=== PATIENT | female | born 1960 | race Caucasian/White ===

== ENCOUNTER → 2021-08-26 08:48 | Outpatient (BNVA) | payer MEDICARE, SELFPAY | PROVIDERS: PCP Family Medicine; Referring Provider Family Medicine; Visit Provider Orthopaedic Surgery | DX: M54.50 Low back pain, unspecified (principal) | CPT/HCPCS: 72110; 99203; 99204 ==

== ENCOUNTER 2021-10-08 08:09 | Outpatient (CLI) | payer MEDICARE, SELFPAY ==
--- NOTE | 2021-10-08 08:45 | MR_ITS ---
WS: [id number] MRI LUMBAR SPINE WITHOUT AND WITH CONTRAST TECHNIQUE: Sagittal T1, T2 and STIR imaging. Axial T1 and T2 imaging. Post gadolinium imaging was obt ained. CLINICAL INFORMATION: pain COMPARISON: None. FINDINGS: Mild lumbar curve. No acute compression. Pedicle screw fixation L4-L5 with interbody fusion graft. No high-grade central canal stenosis. L1-L2: Mild annular bulging with a tiny LEFT subarticular protrusion.. Slight narrowing of the LEFT s ubarticular recess with encroachment traversing LEFT L2 nerve root. Mild facet arthropathy. Foramen a re patent. L2-L3: Slight narrowing of the LEFT subarticular recess and traversing LEFT L3 nerve root. Mild facet arthropathy. Spinal canal and foramen are patent. L3-L4: Mild annular bulging with mild central canal stenosis. Prominent epidural fat contributes to s tenosis. Moderate facet arthropathy with ligamentum flavum hypertrophy. Narrowing of the subarticular recess bilaterally. Mild LEFT and no significant RIGHT foraminal narrowing. L4-L5: Prior postoperative changes pedicle screw fixation with interbody fusion. Spinal canal and for amen are patent. L5-S1: Prior postoperative changes pedicle screw fixation L5. Mild disc bulging with a tiny shallow c entral protrusion. Slight contact of the RIGHT S1 nerve root. Spinal canal and foramen are patent. Mo derate facet arthropathy. No abnormal gadolinium enhancement. Tiny central protrusions mid cervical spine at C4-C5 and C5-C6 seen on the bark scaler imaging. MR/MR lumbar spine wo/w con [id number] IMPRESSION: 1. Mild lumbar curve. No acute compression. No high-grade central canal stenos is. 2. Pedicle screw fixation L4-L5 with interbody fusion graft which appears lulu d. 3. Mild annular bulging L1-L2 with slight effacement of ventral thecal sac. Ti ny LEFT subarticular protrusion with slight encroachment on the traversing LEFT L2 nerve root. 4. Slight narrowing of the LEFT L2-L3 subarticular recess. 5. Mild central canal stenosis L3-L4 due to slight retrolisthesis in combinati on with disc bulging and facet arthropathy with ligamentum flavum hypertrophy. Prominent dorsal epidural fat at this level contributes to stenosis. Narrowing of the LEFT greater than RIGHT subarticular recess with mild LEFT foraminal av rowing. 6. Spinal canal and foramen are patent at the L4-L5 and L5-S1 fusion levels. 7. Tiny RIGHT pericentral protrusion L5-S1 slightly contacts RIGHT S1 nerve ro ot. 8. Moderate to advanced facet arthropathy L5-S1.
== END 2021-10-08 08:10 | disposition home or self-care (01) ==
PROVIDERS: PCP Family Medicine; Visit Provider Orthopaedic Surgery
DX: M51.26 Other intervertebral disc displacement, lumbar region (principal); M48.061 Spinal stenosis, lumbar region without neurogenic claudication; M51.27 Other intervertebral disc displacement, lumbosacral region; Z98.1 Arthrodesis status
CPT/HCPCS: 72158

== ENCOUNTER → 2021-10-23 08:08 | Outpatient (BNVA) | payer MEDICARE, SELFPAY | PROVIDERS: PCP Family Medicine; Visit Provider Orthopaedic Surgery | DX: M48.061 Spinal stenosis, lumbar region without neurogenic claudication (principal); M51.36 Other intervertebral disc degeneration, lumbar region; Z98.1 Arthrodesis status | CPT/HCPCS: 99214 ==

== ENCOUNTER 2022-01-08 09:22 | Outpatient (CLI) | payer MEDICARE, SELFPAY ==
--- NOTE | 2022-01-08 09:29 | MM_ITS ---
WS: [id number] BILATERAL SCREENING DIGITAL TOMOSYNTHESIS MAMMOGRAM WITH CAD HISTORY: SCREENING COMPARISON: None available. Bilateral CC and MLO views with tomosynthesis and synthetic mammography submitted. Computer aided det ection analyzed. Breast composition: There are scattered areas of fibroglandular density. No suspicious masses, microc alcifications or architectural distortion. MM/[place] [id number] IMPRESSION: BI-RADS: 1-Negative FOLLOW UP: 1 Year Follow-up
== END 2022-01-08 09:23 | disposition home or self-care (01) ==
LOC: RAD 09:23
PROVIDERS: PCP Family Medicine; Visit Provider Family Medicine
DX: Z12.31 Encounter for screening mammogram for malignant neoplasm of breast (principal)
CPT/HCPCS: 77063; 77067

== ENCOUNTER → 2023-01-13 10:50 | Outpatient (BNVA) | payer MEDICARE, SELFPAY | PROVIDERS: PCP Family Medicine; Referring Provider Family Medicine; Visit Provider Specialist | DX: G56.01 Carpal tunnel syndrome, right upper limb (principal) | CPT/HCPCS: 73110 ==

== ENCOUNTER 2023-01-13 15:36 | Outpatient (CLI) | payer MEDICARE, SELFPAY | END 2023-01-13 15:37 | disposition home or self-care (01) | LOC: SPT 15:36 | PROVIDERS: PCP Family Medicine; Visit Provider Specialist | DX: Z46.89 Encounter for fitting and adjustment of other specified devices (principal); G56.00 Carpal tunnel syndrome, unspecified upper limb | CPT/HCPCS: 99204; L3908 ==

== ENCOUNTER 2023-01-26 10:55 | Outpatient (CLI) | payer MEDICARE, SELFPAY ==
[2023-01-26 11:26] LABS: Basophils % 0.6 %; Eosinophils # 0.1 10^3/uL (0.0-0.8); Eosinophils % 1.7 %; Hematocrit 41.4 % (36-47); Lymphocytes # 2.2 10^3/uL (0.8-4.8); Lymphocytes % 42.6 %; Mean Corpuscular HGB Conc 34.1 g/dL (30-55); Mean Corpuscular Hemoglobin 33.6 pg (27-33); Mean Corpuscular Volume 98.6 fl (85-98); Monocytes # 0.3 10^3/uL (0.2-0.9); Monocytes % 4.9 %; Neutrophils # 2.62 10^3/uL (1.8-7.7); Neutrophils % 49.8 %; Nucleated Red Blood Cells % 0 %; Platelet Count 212 10^3/cmm (157-399); Red Cell Distribution Width 12.7 % (12.1-15.1); White Blood Count 5.26 10^3/uL (3.29-11.43)
[2023-01-26 11:48] LABS: Add Urine Microscopic? YES; Bacteria Urine 3+ /hpf; Bilirubin Urine Neg (Negative); Blood Urine Neg (Negative); Glucose Urine UA Norm (Normal); Ketones Urine Negative (Negative); Leukocyte Esterase Urine 2+ (Negative); Nitrate Urine Negative (Negative); Protein Urine Neg (Negative); RBC Urine 0-4 /hpf (0-2); Specific Gravity, Urine 1.015 (1.005-1.030); Urine Appearance SL Hazy (CLEAR); Urine Color Yellow (Yellow); Urobilinogen Urine Norm (Negative); pH Urine 6 (5-7)
[2023-01-26 11:49] LABS: Add Urine Culture? Yes
[2023-01-26 11:53] LABS: Alanine Aminotransferase 21 U/L (0-33); Albumin Level 4.4 g/dL (3.5-5.2); Alkaline Phosphatase 66 U/L (35-105); Anion Gap 13.8 (5-19); Aspartate Amino Transferase 20 U/L (0-32); Blood Urea Nitrogen 16 mg/dL (8-23); Calcium 9.3 mg/dL (8.5-10.5); Carbon Dioxide 23 mmol/L (22-29); Chloride 106 mmol/L (98-107); Globulin 2.6 g/dL (1.3-4.6); Glomerular Filtration Rate 85.1 mL/min (90-130); Glucose 114 mg/dL (65-115); Osmolality Calculated 290 mOsm/kg (285-295); Potassium 3.8 mmol/L (3.5-5.1); Sodium 139 mmol/L (136-145); Total Bilirubin 1.1 mg/dL (0.15-1.2)
== END 2023-01-26 10:56 | disposition home or self-care (01) ==
PROVIDERS: PCP Family Medicine; Visit Provider Specialist
DX: G56.00 Carpal tunnel syndrome, unspecified upper limb (principal); Z79.899 Other long term (current) drug therapy
CPT/HCPCS: 36415; 80053; 81001; 85025; 87086; 87186

== ENCOUNTER → 2023-01-29 11:13 | Outpatient (BNVA) | payer MEDICARE, SELFPAY | PROVIDERS: PCP Family Medicine; Visit Provider Family Medicine | DX: Z01.818 Encounter for other preprocedural examination (principal); Z79.899 Other long term (current) drug therapy | CPT/HCPCS: 81000; 81003 ==

== ENCOUNTER 2023-02-02 10:12 | Outpatient (CLI) | payer MEDICARE, SELFPAY ==
--- NOTE | 2023-02-02 10:19 | MM_ITS ---
WS: [id number] BILATERAL 3D TOMOSYNTHESIS DIGITAL SCREENING MAMMOGRAPHY WITH CAD CLINICAL INFORMATION: SCREENING HISTORY: Screening mammogram. No current complaints. COMPARISON: 2021 TECHNIQUE: Bilateral CC and MLO views. FINDINGS: Scattered fibroglandular densities bilaterally. No suspicious focal mass, asymmetry, calcifications, or architectural distortion. No evidence of malignancy. Punctate and lucent centered calcifications. IMPRESSION: MM/[place] [id number] BI-RADS: 2-Benign FOLLOW UP: 1 Year Follow-up Recommend return to annual screening mammography.
== END 2023-02-02 10:13 | disposition home or self-care (01) ==
LOC: MOBLMAM 10:18
PROVIDERS: PCP Family Medicine; Visit Provider Family Medicine
DX: Z12.31 Encounter for screening mammogram for malignant neoplasm of breast (principal)
CPT/HCPCS: 77063; 77067

== ENCOUNTER 2023-02-05 08:15 | Day surgery (SDC) | payer MEDICARE, SELFPAY ==
[2023-02-04 09:11] VITALS: BP 153/84; PULSE 62; RESP 16; O2SAT 99
[2023-02-04 09:17] VITALS: BMI 34.9
[2023-02-05] VITALS (10 sets, daily range): BP systolic 119–179; BP diastolic 56–105; PULSE 56–75; RESP 10–22; TEMP 36–36.6; O2SAT 92–98
[2023-02-05] MEDS: acetaminophen 1,000 MG/100 ML PIGGYBACK 400 MG IV (09:26)
[2023-02-05] MEDS: sodium chloride 0.9% 1,000 ML 30 ML IV (09:28)
[2023-02-05] MEDS: CELEcoxib 200 mg Capsule 400 MG PO (09:28)
--- NOTE | 2023-02-05 09:56 | ANES.PREANE2 ---
Pre-Anesthetic Assessment Height/Weight: Height 1.55 m Weight 83.915 kg Temp Pulse Resp BP Pulse Ox O2 Del Method 97.5 F L 68 16 131/75 98 Room Air 02/05/23 09:42 02/05/23 09:42 02/05/23 09:42 02/05/23 09:42 02/05/23 09:42 02/05/23 09:30 Operation Date: 02/05/23 10:40 Proposed Procedures p RIGHT CARPAL TUNNEL RELEASE [id number],G56.00(Right) - Kimberlyn Rodriguez MD Was Beta [facility] taken within 24 hours: Yes Was Clonidine taken within 24 hours: N/A Last intake: Intake Last Liquid Date 02/04/23 Last Liquid Time 18:00 Last Solid Date 02/04/23 Last Solid Time 20:00 Social No tobacco Exam alert, oriented x 3, clear to auscultation bilaterally and regular rate & rhythm Airway Submandibular: within normal limits Cervical ROM: within normal limits Mallampati: Class II History/ROS No significant history except as noted and No significant complaints CV/HEM Hypertension Metabolic Hyperlipidemia and Morbid Obesity Neuropsych Depression Anesthetic Plan ASA status: 3 Anesthesia: Choice Risk of > 500 ml blood loss (7ml/kg in children): No Medications/Allergies Home Medications Medication Instructions Recorded Confirmed Last Taken Type aspirin 81 mg tablet,delayed 81 mg PO DAILY 08/26/21 02/04/23 01/21/23 History release (Adult Aspirin Regimen) benazepril 20 mg tablet 20 mg PO DAILY 08/26/21 02/05/23 02/04/23 History carvedilol 3.125 mg tablet (Coreg) 3.125 mg PO BID 08/26/21 02/05/23 02/05/23 07:30 History cetirizine 10 mg capsule (All Day 10 mg PO DAILY PRN Allergy Symptoms 08/26/21 02/05/23 02/04/23 History Allergy (cetirizine)) famotidine 20 mg tablet 20 mg PO DAILY 08/26/21 02/05/23 02/04/23 History fluoxetine 20 mg capsule 20 mg PO DAILY 08/26/21 02/05/23 02/04/23 History fluticasone propionate 50 1 spray intranasal DAILY 08/26/21 02/05/23 02/04/23 History mcg/actuation nasal spray,suspension (Flonase Allergy Relief) pravastatin 10 mg tablet 10 mg PO DAILY 08/26/21 02/04/23 02/04/23 History spironolactone 25 mg tablet 25 mg PO DAILY 08/26/21 02/04/23 02/04/23 History cock up wrist splint #1 ea 01/13/23 01/13/23 Unknown Rx ciprofloxacin HCl 500 mg tablet 500 mg PO BID #10 tabs 01/31/23 02/05/23 02/04/23 Rx Allergies Allergy/AdvReac Type Severity Reaction Status Date / Time Sulfa (Sulfonamide AdvReac ADR-Nausea Verified 02/04/23 09:14 Antibiotics) Current Medications Generic Name Dose Route Start Last Admin Trade Name Freq PRN Reason Stop Dose Admin Sodium Chloride 1,000 mls @ 30 mls/hr 02/05/23 09:00 02/05/23 09:28 Sodium Chloride 0.9% IV 02/06/23 08:59 30 mls/hr .Q24H BEL Administration Data Anesthesia Cardiac Studies: No Data to Display
--- NOTE | 2023-02-05 10:25 | P.HPUD_ITS ---
Surgery/Procedure H&P Update DATE OF PROCEDURE: February 05, 2023 DATE H&P PERFORMED: 01/13/23 H&P UPDATE INFORMATION: I have reviewed H&P completed within last 30 days, I have examined patient prior to procedure, No changes to prior documentation and H&P is in [facility] EMR on date indicated PLANNED PROCEDURE: Operation Date: 02/05/23 10:40 Proposed Procedures p RIGHT CARPAL TUNNEL RELEASE 43025,G56.00(Right) - Kimberlyn Rodriguez MD Related Problem List Diagnoses (1) Carpal tunnel syndrome on right:
[2023-02-05] MEDS: ceFAZolin 2,000 MG in sodium chloride 0.9% (plus) 50 ML 100 MG IV (10:36)
[2023-02-05] MEDS: BUPivacaine 0.5% INJ 30 mL INJECTION (11:16)
--- NOTE | 2023-02-05 11:31 | PM.OP ---
Operative Report Date of procedure: February 05, 2023 Pre-op diagnosis: Right carpal tunnel syndrome Post-op diagnosis: Right carpal tunnel syndrome Post-op findings: Significant compression across the carpal canal with discoloration and compression across the median nerve Procedure done: Right carpal tunnel release Surgeon: Kimberlyn Rodriguez MD Anesthesia: General (Per LMA, ASA 3) Estimated blood loss (mL): 2 Tourniquet time (min): 18 (At 250 mmHg) IV fluids (mL): 300 Urine output (mL): 0 (No Cespedes) Complications: None Findings: Significant compression across the carpal canal with discoloration and compression across the median nerve Condition: stable Disposition: PACU (Then discharged for home for postoperative rehabilitation and pain management) Brief History: Alireza Burkett presents today for right carpal tunnel release. She had an EMG at [facility] which confirmed carpal tunnel syndrome. The pain has been present for greater than 6 months. She has difficulties with her activities of daily living. When she was seen in the office, questions were answered and consents were signed. Procedure: The patient was brought to the operating theater.? Patient was administered a general anesthesia per LMA, ASA 3.? The tourniquet was elevated to 250 mmHg for a total tourniquet time of 18 minutes. The patient was also given Ancef 2 g preoperatively. The arm was then prepped and draped with DuraPrep in usual fashion with the arm draped free. A surgical pause was performed. At the time, the surgical pause, we confirmed the site and side of surgery. We also confirmed the patient's identity, appropriate and timely administration of preoperative antibiotics and preoperative surgical markings. An incision was then made along the thenar crease. The incision crossed the wrist joint in a curvilinear fashion. Dissection continued through skin and soft tissues using a scalpel. The palmaris longus was identified along with the transverse carpal ligament. Each of these was released carefully to avoid injury to the median nerve. We were able to dissect gently into the carpal canal which was noted to be quite tight with significant compression across the median nerve. The nerve was visualized and was an hourglass shape. The canal was subsequently palpated to assure there was no bony encroachment upon the canal. There was a quite thickened fibrous tissue within the canal, and this was opened longitudinally as well. The canal was then palpated distally and proximally to assure that my small finger was passed easily without impingement. Finding this to be so, attention was directed to closure. The wound was irrigated with ropivacaine plain. It was then closed with 3-0 nylon in an interrupted mattress fashion. Sterile dressing was then placed consisting of Dermabond, OpSite, sterile soft roll, and an Jamil wrap. The tourniquet was released after 18 minutes. There were no complications. There were no specimens. The procedure was well tolerated. Plan is the patient will be discharged home. Related Problem List Diagnoses (1) Carpal tunnel syndrome on right:
--- NOTE | 2023-02-05 13:49 | ANE.PACU2 ---
Inpatient post-anesthesia follow up: Airway intact: Yes Vital signs: Temperature 96.8 F Pulse Rate 69 Respiratory Rate 16 Blood Pressure 170/86 Pulse Oximetry 96 Oxygen Delivery Me thod Room Air Oxygen Flow Rate 6 Fraction of Inspir ed Oxygen Hydration adequate: Yes Nausea and vomiting: No Pain level: 1 Mental status: Baseline
== END 2023-02-05 12:35 | disposition home or self-care (01) ==
PROVIDERS: PCP Family Medicine; Visit Provider Specialist
PROC: (CPT 64721; principal; 2023-02-05 10:30)
DX: G56.01 Carpal tunnel syndrome, right upper limb (principal); I10 Essential (primary) hypertension; E78.5 Hyperlipidemia, unspecified; E66.01 Morbid (severe) obesity due to excess calories; Z68.35 Body mass index [BMI] 35.0-35.9, adult; Z79.82 Long term (current) use of aspirin
CPT/HCPCS: 64721; J0131; J0690; J1100; J2405; J2704; J3010; J3490; J7030

== ENCOUNTER → 2023-02-18 08:55 | Outpatient (BNVA) | payer MEDICARE, SELFPAY | PROVIDERS: PCP Family Medicine; Visit Provider Physician Assistant | DX: Z98.890 Other specified postprocedural states (principal) | CPT/HCPCS: 99024 ==

== ENCOUNTER → 2023-03-31 07:59 | Outpatient (BNVA) | payer MEDICARE, SELFPAY | PROVIDERS: PCP Family Medicine; Visit Provider Specialist | DX: Z98.890 Other specified postprocedural states (principal) | CPT/HCPCS: 99024 ==

== ENCOUNTER → 2023-04-12 10:37 | Outpatient (BNVA) | payer MEDICARE, SELFPAY | PROVIDERS: PCP Family Medicine; Referring Provider Family Medicine; Visit Provider Surgery | DX: Z12.11 Encounter for screening for malignant neoplasm of colon (principal) | CPT/HCPCS: 99024; 99203 ==

== ENCOUNTER 2023-06-17 08:19 | Day surgery (SDC) | payer MEDICARE, SELFPAY ==
[2023-06-17 08:33] VITALS: BP 136/81; PULSE 74; RESP 18; TEMP 36.2; O2SAT 98; BMI 34.9
[2023-06-17] MEDS: sodium chloride 0.9% 1,000 ML 30 ML IV (08:39)
--- NOTE | 2023-06-17 08:43 | ANES.PREANE2 ---
Pre-Anesthetic Assessment Height/Weight: Height 1.55 m Weight 83.915 kg Temp Pulse Resp BP Pulse Ox O2 Del Method 97.2 F L 74 18 136/81 98 Room Air 06/17/23 08:33 06/17/23 08:33 06/17/23 08:33 06/17/23 08:33 06/17/23 08:33 06/17/23 08:33 Preop Diagnosis: screening Operation Date: 06/17/23 09:15 [place] [address] colon G0121 screen colon a risk Z12.11(Not Applicable) - Yan Hampton MD Was Beta [facility] taken within 24 hours: Yes Was Clonidine taken within 24 hours: N/A Last intake: Intake Last Liquid Date 06/16/23 Last Liquid Time 20:00 Last Solid Date 06/15/23 Last Solid Time 15:00 Last Intake: 00:01 Social No alcohol Exam alert, oriented x 3, clear to auscultation bilaterally and regular rate & rhythm Airway Submandibular: within normal limits Cervical ROM: within normal limits Mallampati: Class II Comments: Comments: intact History/ROS No significant history except as noted and No significant complaints Pulmonary None reported CV/HEM Hypertension high chol None reported Hepatic None reported GI None reported Metabolic Thyroid Disease polyps Musc/skel None reported Neuropsych Anxiety Anesthetic Plan ASA status: 2 Anesthesia: MAC Medications/Allergies Home Medications Medication Instructions Recorded Confirmed Last Taken Type aspirin 81 mg tablet,delayed 81 mg PO .QOTHERDAY 08/26/21 06/15/23 06/14/23 History release (Adult Aspirin Regimen) benazepril 20 mg tablet 20 mg PO DAILY 08/26/21 06/15/23 06/16/23 History carvedilol 3.125 mg tablet (Coreg) 3.125 mg PO BID 08/26/21 06/15/23 06/17/23 History cetirizine 10 mg capsule (All Day 10 mg PO DAILY PRN Allergy Symptoms 08/26/21 06/15/23 06/16/23 History Allergy (cetirizine)) famotidine 20 mg tablet 20 mg PO DAILY 08/26/21 06/15/23 06/16/23 History fluoxetine 20 mg capsule 20 mg PO DAILY 08/26/21 06/15/23 06/16/23 History fluticasone propionate 50 1 spray intranasal DAILY 08/26/21 06/15/23 06/16/23 History mcg/actuation nasal spray,suspension (Flonase Allergy Relief) pravastatin 10 mg tablet 10 mg PO DAILY 08/26/21 06/15/23 06/16/23 History spironolactone 25 mg tablet 25 mg PO DAILY 08/26/21 06/15/23 06/16/23 History Hair,Skin and Nails 2 tab PO DAILY 06/15/23 06/15/23 06/16/23 History PreserVision AREDS 2 tab PO DAILY 06/15/23 06/15/23 06/16/23 History acetaminophen 650 mg 650 mg PO Q12H 06/15/23 06/15/23 06/15/23 History tablet,extended release Allergies Allergy/AdvReac Type Severity Reaction Status Date / Time Sulfa (Sulfonamide AdvReac ADR-Nausea Verified 06/15/23 08:42 Antibiotics) Current Medications Generic Name Dose Route Start Last Admin Trade Name Freq PRN Reason Stop Dose Admin Sodium Chloride 1,000 mls @ 30 mls/hr 06/17/23 08:30 06/17/23 08:39 Sodium Chloride 0.9% IV 30 mls/hr .Q24H BEL Administration PFSH Anesthesia Family History (Updated 04/12/23 @ 10:[address]) Father Cancer colon cancer prostate cancer and liver Renal failure Mother Stroke 62 Hypertension Social History (Updated 04/12/23 @ 10:[address]) Smoking and tobacco/nicotine status: never used tobacco/nicotine Alcohol intake: never Data Anesthesia Cardiac Studies: No Data to Display
--- NOTE | 2023-06-17 08:50 | W.PM.OPSFHP ---
Same Day Surgery H&P Indication for Procedure/HPI DATE OF PROCEDURE: June 17, 2023 CHIEF COMPLAINT/INDICATIONFOR SURGICAL PROCEDURE: need for screening colonoscopy PREOP DIAGNOSIS: screening PLANNED PROCEDURE: Operation Date: 06/17/23 09:15 Proposed Procedures p 20385 colon G0121 screen colon a risk Z12.11(Not Applicable) - Yan Hampton MD Medications/Allergies* Home Medications Medication Instructions Recorded Confirmed Type aspirin 81 mg tablet,delayed 81 mg PO .QOTHERDAY 08/26/21 06/15/23 History release (Adult Aspirin Regimen) benazepril 20 mg tablet 20 mg PO DAILY 08/26/21 06/15/23 History carvedilol 3.125 mg tablet (Coreg) 3.125 mg PO BID 08/26/21 06/15/23 History cetirizine 10 mg capsule (All Day 10 mg PO DAILY PRN Allergy Symptoms 08/26/21 06/15/23 History Allergy (cetirizine)) famotidine 20 mg tablet 20 mg PO DAILY 08/26/21 06/15/23 History fluoxetine 20 mg capsule 20 mg PO DAILY 08/26/21 06/15/23 History fluticasone propionate 50 1 spray intranasal DAILY 08/26/21 06/15/23 History mcg/actuation nasal spray,suspension (Flonase Allergy Relief) pravastatin 10 mg tablet 10 mg PO DAILY 08/26/21 06/15/23 History spironolactone 25 mg tablet 25 mg PO DAILY 08/26/21 06/15/23 History Hair,Skin and Nails 2 tab PO DAILY 06/15/23 06/15/23 History PreserVision AREDS 2 tab PO DAILY 06/15/23 06/15/23 History acetaminophen 650 mg 650 mg PO Q12H 06/15/23 06/15/23 History tablet,extended release Allergies/Adverse Reactions Allergy/AdvReac Type Severity Reaction Status Date / Time Sulfa (Sulfonamide AdvReac ADR-Nausea Verified 06/15/23 08:42 Antibiotics) Current Medications: Generic Name Dose Route Start Last Admin Trade Name Freq PRN Reason Stop Dose Admin Sodium Chloride 1,000 mls @ 30 mls/hr 06/17/23 08:30 06/17/23 08:39 Sodium Chloride 0.9% IV 30 mls/hr .Q24H BEL Administration Pertinent History/Comorbid Conditions* Family History (Updated 04/12/23 @ 10:44 by SHAHZAD Jara) Renal failure Father Cancer Father colon cancer prostate cancer and liver Hypertension Mother Stroke Mother 62 Social History Smoking and tobacco/nicotine status: never used tobacco/nicotine Alcohol intake: never Pertinent Exam Findings alert, oriented x 3 and clear to auscultation bilaterally Recommendations Surgery/Procedure today Coding Level of Care Code Acute Code for Chg Fwd
[2023-06-17 09:20] VITALS: BP 123/55; PULSE 66; RESP 18; TEMP 36.1; O2SAT 95
[2023-06-17 09:30] VITALS: BP 111/63; PULSE 63; RESP 18; O2SAT 95
[2023-06-17 09:39] VITALS: BP 125/74; PULSE 62; RESP 16; O2SAT 96
--- NOTE | 2023-06-17 10:00 | ANE.PACU2 ---
Inpatient post-anesthesia follow up: Airway intact: Yes Vital signs: Temperature 97.0 F Pulse Rate 62 Respiratory Rate 16 Blood Pressure 125/74 Pulse Oximetry 96 Oxygen Delivery Me thod Room Air Oxygen Flow Rate Fraction of Inspir ed Oxygen Hydration adequate: Yes Nausea and vomiting: No Pain level: 1 Mental status: Baseline
== END 2023-06-17 10:00 | disposition home or self-care (01) ==
PROVIDERS: PCP Family Medicine; Visit Provider Surgery
PROC: 0DJD8ZZ Inspection of Lower Intestinal Tract, Via Natural or Artificial Opening Endoscopic (ICD-10-PCS; CPT 45378; principal; 2023-06-17 09:15)
DX: Z12.11 Encounter for screening for malignant neoplasm of colon (principal); D12.8 Benign neoplasm of rectum; Z79.82 Long term (current) use of aspirin; I10 Essential (primary) hypertension
CPT/HCPCS: 45380; 88305; J2704; J7030

== ENCOUNTER → 2023-06-30 10:05 | Outpatient (BNVA) | payer MEDICARE, SELFPAY | PROVIDERS: PCP Family Medicine; Visit Provider Surgery | DX: Z09 Encounter for follow-up examination after completed treatment for conditions other than malignant neoplasm (principal) | CPT/HCPCS: 99212 ==

== ENCOUNTER 2024-04-05 09:52 | Outpatient (CLI) | payer MEDICARE, SELFPAY ==
--- NOTE | 2024-04-05 09:56 | MM_ITS ---
WS: [id number] BILATERAL SCREENING DIGITAL TOMOSYNTHESIS MAMMOGRAM WITH CAD HISTORY: SCREENING COMPARISON: 02/02/2023, 01/08/2022 Bilateral CC and MLO views with tomosynthesis and synthetic mammography submitted. Computer aided det ection analyzed. Breast composition: The breasts are almost entirely fatty. No suspicious masses, microcalcifications or architectural distortion. Small benign scattered calcifications. MM/MM scr BI tomosynthesis [id number] IMPRESSION: BI-RADS: 2 - Benign. FOLLOW UP: 1 Year Follow-up
== END 2024-04-05 09:53 | disposition home or self-care (01) ==
LOC: RAD 09:53
PROVIDERS: PCP Family Medicine; Visit Provider Family Medicine
DX: Z12.31 Encounter for screening mammogram for malignant neoplasm of breast (principal); R92.313 Mammographic fatty tissue density, bilateral breasts; R92.1 Mammographic calcification found on diagnostic imaging of breast
CPT/HCPCS: 77063; 77067

== ENCOUNTER 2024-05-03 09:59 | Outpatient (CLI) | payer MEDICARE, SELFPAY ==
--- NOTE | 2024-05-03 10:11 | XRR_ITS ---
PROCEDURE INFORMATION: Exam: XR Left Ankle Exam date and time: 05/03/2024 10:23 AM Age: 63 years old Clinical indication: Pain; Ankle; Left; Patient HX: Stiffness and warm feeling in joints x 2 wks; Additional info: Arthritis TECHNIQUE: Imaging protocol: Radiologic exam of the left ankle. Views: 1 or 2 views. COMPARISON: No relevant prior studies available. FINDINGS: Bones/joints: Normal. Soft tissues: Normal. XR/XR ankle LT 2V [id number] IMPRESSION: No acute findings.
--- NOTE | 2024-05-03 10:11 | XRR_ITS ---
PROCEDURE INFORMATION: Exam: XR Right Hand Exam date and time: 05/03/2024 10:23 AM Age: 63 years old Clinical indication: Pain; Hand; Bilateral; Prior surgery; Surgery date: 6+ months; Surgery type: Right carpal tunnel; Patient HX: Stiffness and warm feeling in joints x 2 wks; Additional info: Arthritis TECHNIQUE: Imaging protocol: Radiologic exam of the right hand. Views: 3 or more views. COMPARISON: CR XR wrist RT min 3V* [id number] 05/03/2024 10:23 AM FINDINGS: Bones/joints: Normal. Soft tissues: Normal. XR/XR hand RT min 3V* [id number] IMPRESSION: No acute findings.
--- NOTE | 2024-05-03 10:11 | XRR_ITS ---
PROCEDURE INFORMATION: Exam: XR Left Hand Exam date and time: 05/03/2024 10:23 AM Age: 63 years old Clinical indication: Pain; Hand; Bilateral; Patient HX: Stiffness and warm feeling in joints x 2 wks; Additional info: Arthritis TECHNIQUE: Imaging protocol: Radiologic exam of the left hand. Views: 3 or more views. COMPARISON: CR XR wrist LT min 3V* [id number] 05/03/2024 10:23 AM FINDINGS: Bones/joints: Normal. Soft tissues: Normal. XR/XR hand LT min 3V* [id number] IMPRESSION: No acute findings.
--- NOTE | 2024-05-03 10:11 | XRR_ITS ---
PROCEDURE INFORMATION: Exam: XR Right Ankle Exam date and time: 05/03/2024 10:23 AM Age: 63 years old Clinical indication: Pain; Ankle; Right; Patient HX: Stiffness and warm feeling in joints x 2 wks; Additional info: Arthritis TECHNIQUE: Imaging protocol: Radiologic exam of the right ankle. Views: 1 or 2 views. COMPARISON: No relevant prior studies available. FINDINGS: Bones/joints: Incidentally noted is a small right inferior calcaneal spur. Otherwise, unremarkable. Soft tissues: Otherwise, unremarkable soft tissues. XR/XR ankle RT 2V [id number] IMPRESSION: No acute findings.
--- NOTE | 2024-05-03 10:17 | XRR_ITS ---
PROCEDURE INFORMATION: Exam: XR Left Wrist Exam date and time: 05/03/2024 10:23 AM Age: 63 years old Clinical indication: Pain; Wrist; Left; Patient HX: Stiffness and warm feeling in joints x 2 wks; Additional info: Arthritis(icd-m19.90) TECHNIQUE: Imaging protocol: Radiologic exam of the left wrist. Views: 3 or more views. COMPARISON: CR XR hand LT min 3V* [id number] 05/03/2024 10:23 AM FINDINGS: Bones/joints: Normal. Soft tissues: Normal. XR/XR wrist LT min 3V* [id number] IMPRESSION: No acute findings.
--- NOTE | 2024-05-03 10:18 | XRR_ITS ---
PROCEDURE INFORMATION: Exam: XR Right Wrist Exam date and time: 05/03/2024 10:23 AM Age: 63 years old Clinical indication: Pain; Wrist; Prior surgery; Surgery date: 6+ months; Surgery type: Right carpal tunnel; Patient HX: Stiffness and warm feeling in joints x 2 wks; Additional info: Arthritis(icd-m19.90) TECHNIQUE: Imaging protocol: Radiologic exam of the right wrist. Views: 3 or more views. COMPARISON: CR XR wrist RT min 3V* [id number] 01/13/2023 10:51 AM FINDINGS: Bones/joints: Normal. Soft tissues: Normal. XR/XR wrist RT min 3V* [id number] IMPRESSION: No acute findings.
== END 2024-05-03 10:00 | disposition home or self-care (01) ==
PROVIDERS: PCP Family Medicine; Visit Provider Family Medicine
DX: M77.31 Calcaneal spur, right foot (principal); M19.90 Unspecified osteoarthritis, unspecified site
CPT/HCPCS: 73110; 73130; 73600

== ENCOUNTER → 2024-08-03 13:44 | Outpatient (BNVA) | payer MEDICARE, SELFPAY | PROVIDERS: PCP Family Medicine; Visit Provider Dermatology | DX: C44.92 Squamous cell carcinoma of skin, unspecified (principal); L81.4 Other melanin hyperpigmentation; L82.1 Other seborrheic keratosis; D18.01 Hemangioma of skin and subcutaneous tissue; D23.39 Other benign neoplasm of skin of other parts of face; B07.0 Plantar wart; D48.5 Neoplasm of uncertain behavior of skin; L57.0 Actinic keratosis | CPT/HCPCS: 17000; 69100; 99203 ==

== ENCOUNTER → 2025-02-05 11:29 | Outpatient (BNVA) | payer MEDICARE, SELFPAY | PROVIDERS: PCP Family Medicine; Visit Provider Dermatology | DX: B07.0 Plantar wart (principal); L82.1 Other seborrheic keratosis; L72.0 Epidermal cyst; D22.4 Melanocytic nevi of scalp and neck; D36.14 Benign neoplasm of peripheral nerves and autonomic nervous system of thorax; Z85.828 Personal history of other malignant neoplasm of skin; L82.0 Inflamed seborrheic keratosis; L29.89 Other pruritus; R20.8 Other disturbances of skin sensation; L53.8 Other specified erythematous conditions; L91.8 Other hypertrophic disorders of the skin | CPT/HCPCS: 11200; 17110; 99213 ==

== ENCOUNTER → 2025-02-21 09:33 | Outpatient (BNVA) | payer MEDICARE, SELFPAY | PROVIDERS: PCP Family Medicine; Visit Provider Podiatrist Foot & Ankle Surgery | DX: B07.8 Other viral warts (principal) | CPT/HCPCS: 17110; 99203 ==

== ENCOUNTER → 2025-03-21 09:43 | Outpatient (BNVA) | payer MEDICARE, SELFPAY | PROVIDERS: PCP Family Medicine; Visit Provider Podiatrist Foot & Ankle Surgery | DX: B07.8 Other viral warts (principal) | CPT/HCPCS: 99213 ==

== ENCOUNTER 2025-04-09 10:28 | Outpatient (CLI) | payer MEDICARE, SELFPAY ==
--- NOTE | 2025-04-09 10:33 | MM_ITS ---
WS: [id number] BILATERAL 3D TOMOSYNTHESIS DIGITAL SCREENING MAMMOGRAPHY WITH CAD CLINICAL INFORMATION: SCREENING HISTORY: Screening mammogram. No current complaints. History of breast reduction COMPARISON: 2023 TECHNIQUE: Bilateral CC and MLO views. FINDINGS: Scattered fibroglandular densities bilaterally. No suspicious focal mass, asymmetry, calcifications, or architectural distortion. No evidence of malignancy. Lucent centered calcification LEFT breast MM/MM scr BI tomosynthesis [id number] IMPRESSION: DENSITY: There are scattered areas of fibroglandular density. BI-RADS: 2 - Benign. FOLLOW UP: 1 Year Follow-up Recommend return to annual screening mammography.
== END 2025-04-09 10:29 | disposition home or self-care (01) ==
LOC: RAD 10:29
PROVIDERS: PCP Family Medicine; Visit Provider Family Medicine
DX: Z12.31 Encounter for screening mammogram for malignant neoplasm of breast (principal); R92.323 Mammographic fibroglandular density, bilateral breasts; R92.1 Mammographic calcification found on diagnostic imaging of breast
CPT/HCPCS: 77063; 77067

== ENCOUNTER → 2025-04-25 11:22 | Outpatient (BNVA) | payer MEDICARE, SELFPAY | PROVIDERS: PCP Family Medicine; Visit Provider Podiatrist Foot & Ankle Surgery | DX: B07.8 Other viral warts (principal) | CPT/HCPCS: 99213 ==